=== PATIENT | female | born 1965 | race Hispanic/Latino ===

== ENCOUNTER 2020-01-22 17:43 | Emergency (ER) | payer SELFPAY ==
[~2020-01-22] VITALS: Ht 157.5 cm; Wt 62.1 kg
[2020-01-22] MEDS ORDERED: KETOROLAC TROMETHAMINE 30 MG/ML VIAL IV STA (18:53)
--- NOTE | 2020-01-22 19:07 | NUR ---
Report to ARNOLD Del Cid
[2020-01-22] MEDS ORDERED: INSULIN REGULAR, HUMAN 100 UNIT/1 ML 3ML VIAL IV ONE (20:00)
[2020-01-22] MEDS ORDERED: INSULIN REGULAR, HUMAN 100 UNIT/1 ML 3ML VIAL ONE (20:15)
--- NOTE | 2020-01-22 20:16 | Diagnostic Imaging Report ---
EXAMINATION: CT of the abdomen and pelvis without contrast. TECHNIQUE: Spiral CT images of the abdomen and pelvis were performed from the lung bases to the lesser trochanters. No intravenous contrast was given per renal stone protocol. Coronal and sagittal reformatted images were obtained. COMPARISON: None. CLINICAL HISTORY:Abdominal pain, left flank pain since 3 hours ago DISCUSSION: ABSENCE OF INTRAVENOUS CONTRAST DECREASES SENSITIVITY FOR DETECTION OF FOCAL LESIONS AND VASCULAR PATHOLOGY. ABDOMEN/PELVIS: LOWER THORAX: Lung bases are clear. Atherosclerotic calcification of the coronary arteries. HEPATOBILIARY: No focal hepatic lesions. No intra or extrahepatic biliary ductal dilation. GALLBLADDER: Cholecystectomy clips. SPLEEN: No splenomegaly. PANCREAS: No focal masses or ductal dilatation. ADRENALS: No adrenal nodules. KIDNEYS/URETERS: No renal or ureteral calculi, hydronephrosis or obstruction. No contour abnormalities or significant perinephric stranding. Extensive renal vascular calcifications. PELVIC ORGANS/BLADDER: Bladder is unremarkable, without focal lesions, wall thickening or stones. Uterus is absent. Multiple pelvic phleboliths. No adnexal masses. PERITONEUM/RETROPERITONEUM: No free air or fluid. LYMPH NODES: No intra-abdominal,retroperitoneal, pelvic or inguinal lymphadenopathy. VESSELS: Marked atherosclerotic calcification of the aortic branches, particularly celiac trunk and splenic artery, SMA, ANAM and iliac vessels, as well as bilateral renal arteries. GI TRACT: No bowel dilation or evidence of obstruction. Appendix is well identified and normal in caliber. No pericolonic inflammatory changes. No wall thickening. Intraluminal 1.5 cm fat density structures in the distal small bowel (series 2, images 47 and 46), may represent small lipomas or pill material. 9 mm oval shaped intraluminal hyperdensities in the distal small bowel (series 2, image 44) likely represent undigested pill material. BONES AND SOFT TISSUES: No aggressive lytic or suspicious focal sclerotic lesions soft tissues are grossly unremarkable.. IMPRESSION: 1. No renal, ureteral or bladder calculi, hydronephrosis or obstruction. No acute abdominopelvic abnormalities in this noncontrast exam. 2.. Marked atherosclerotic calcification of the aortic branches, particularly the celiac trunk, splenic artery, SMA, ANAM and iliac vessels, greater than expected for the patient's age. Signed by: Dr. Steven Meyer M.D. on 01/22/2020 8:12 PM
[2020-01-22] MEDS ORDERED: KETOROLAC TROMETHAMINE 30 MG/ML VIAL ONE (20:17)
--- NOTE | 2020-01-22 20:30 | Emergency Department Note ---
History of Present Illnes History of Present Illness Chief Complaint: Back Pain History of Present Illness This is a 54 year old female Chief Complaint Comment Reports that she is having left flank pain for the last 3 hours, denies any urinary symptoms . Historian: Patient Arrival Mode: Car Onset (how long ago): day(s) (2) Location: left flank Quality: sharp Radiation: Denies non-radiation, Denies back, Denies neck, Denies extremity, Denies abdomen, Denies periumbilical, Denies flank, Denies proximal, Denies distal, Denies other Severity: moderate Onset quality: gradual Duration (how long): day(s) (2) Timing of current episode: intermittent Progression: waxing and waning Chronicity: new Context: Denies recent illness, Denies recent surgery, Denies recent immobilization, Denies recent travel, Denies trauma/injury, Denies new medications, Denies hx of DVT/PE, Denies non-compliance w/ medications, Denies other Relieving factors: none Exacerbating factors: none Associated symptoms: Reports denies other symptoms, Reports other Treatments prior to arrival: none Past Medical/Family History Physician Review I have reviewed the patient's past medical and family history. Any updates have been documented here. Past Medical History Recent Fever: No Clinical Suspicion of Infectio: No New/Unexplained Change in Ment: No Past Medical History: Hypertension, Diabetes, TIA, UTI's Other Medical History: bronchitis Past Surgical History: Cholecysctectomy, Hysterectomy Other Surgery: hand surgery Social History Smoking Cessation: Never Smoker Counseling Performed: No Alcohol Use: None Any Illegal Drug Use: No TB Exposure/Symptoms: No Physically hurt or threatened: No Family History Family history of heart diseas: Yes Other Last Tetanus: U Any Pre-Existing Lines (PICC,: No Is patient up to date on immun: Yes Last Flu: none Last Pneumovax: none Review of Systems Review of Systems Constitutional: Reports no symptoms EENTM: Reports no symptoms Cardiovascular: Reports no symptoms Respiratory: Reports no symptoms Gastrointestinal: Reports as per HPI Genitourinary: Reports as per HPI Musculoskeletal: Reports no symptoms Integumentary: Reports no symptoms Neurological: Reports no symptoms Psychological: Reports no symptoms Endocrine: Reports no symptoms Hematological/Lymphatic: Reports no symptoms Physical Exam Related Data Allergies: Coded Allergies: methylphenidate (Verified Allergy, Severe, hallucinations, 01/22/20) metoclopramide (Verified Allergy, Severe, auditory hallucinations, 01/22/20) Penicillins (Verified Allergy, Intermediate, hives/rash, 01/22/20) Triage Vital Signs Vital Signs Date Time Temp Pulse Resp B/P (MAP) Pulse Ox O2 Delivery O2 Flow Rate FiO2 01/22/20 18:35 97.8 84 15 205/95 98 Vital signs reviewed: Yes Physical Exam CONSTITUTIONAL Constitutional: Present well-developed, Present well-nourished HENT HENT: Present normocephalic, Present atraumatic, Present oropharynx clear/moist, Present nose normal HENT L/R: Present left ext ear normal, Present right ext ear normal EYES Eyes: Reports PERRL, Reports conjunctivae normal NECK Neck: Present ROM normal PULMONARY Pulmonary: Present effort normal, Present breath sounds normal CARDIOVASCULAR Cardiovascular: Present regular rhythm, Present heart sounds normal, Present capillary refill normal, Present normal rate GASTROINTESTINAL Abdominal: Present soft, Present nontender, Present bowel sounds normal, P resent other (left flank tenderness) GENITOURINARY Genitourinary: Present exam deferred SKIN Skin: Present warm, Present dry MUSCULOSKELETAL Musculoskeletal: Present ROM normal NEUROLOGICAL Neurological: Present alert, Present oriented x 3, Present no gross motor or sensory deficits PSYCHOLOGICAL Psychological: Present mood/affect normal, Present judgement normal Results Laboratory Lab results reviewed: Yes Imaging Imaging results reviewed: Yes Assessment & Plan Medical Decision Making MDM kidney stone uti Reassessment Reassessment time: 20:27 Reassessment better Assessment & Plan Final Impression: (1) Acute left flank pain (2) UTI (urinary tract infection) (3) Hyperglycemia (4) Uncontrolled hypertension Depart Disposition: HOME, SELF-CARE Last Vital Signs Date Time Temp Pulse Resp B/P (MAP) Pulse Ox O2 Delivery O2 Flow Rate FiO2 01/22/20 18:35 97.8 84 15 205/95 98 Medications in the ED Ketorolac Tromethamine 15 mg ONCE STAT IV Last administered on 01/22/20at 20:14; Admin Dose 15 MG; Start 01/22/20 at 18:53; Stop 01/22/20 at 18:58; Status DC Insulin Human Regular 5 unit ONCE ONCE IV Last administered on 01/22/20at 20:14; Admin Dose 5 UNIT; Start 01/22/20 at 20:00; Stop 01/22/20 at 20:01; Status UNV Ketorolac Tromethamine 30 mg STK-MED ONCE .ROUTE ; Start 01/22/20 at 20:17; Stop 01/22/20 at 20:14; Status DC IRAM RUST MD Jan 22, 2020 20:30
== END 2020-01-22 20:32 | disposition home or self-care (01) ==
LOC: EDSEX 17:43 → FSED 17:43
DX: M54.5 Low back pain (principal); N39.0 Urinary tract infection, site not specified; E11.65 Type 2 diabetes mellitus with hyperglycemia; I10 Essential (primary) hypertension; Z86.73 Personal history of transient ischemic attack (TIA), and cerebral infarction without residual deficits
CPT/HCPCS: 74176; 80053; 81003; 85025; 99284; J1817; J1885

== ENCOUNTER 2020-11-19 09:49 | Emergency (ER) | payer MEDICARE, OTHER ==
[~2020-11-19] VITALS: Ht 157.5 cm; Wt 65.1 kg
[2020-11-19] MEDS ORDERED: KETOROLAC TROMETHAMINE 30 MG/ML VIAL IV STA (10:15)
[2020-11-19 12:27] VITALS: BP 132/77
== END 2020-11-19 12:27 | disposition home or self-care (01) ==
LOC: FSED 10:33
DX: M54.5 Low back pain (principal); N39.0 Urinary tract infection, site not specified; I10 Essential (primary) hypertension; E11.9 Type 2 diabetes mellitus without complications; Z86.73 Personal history of transient ischemic attack (TIA), and cerebral infarction without residual deficits
CPT/HCPCS: 74176; 80053; 81003; 85025; 96374; 99284; J1885

== ENCOUNTER 2021-03-29 10:09 | Emergency (ER) | payer OTHER ==
[~2021-03-29] VITALS: Ht 157.5 cm; Wt 64.9 kg
[~2021-03-29 10:09] MED LIST: AMLODIPINE BESYL5 MG PO; CIPRO500 MG PO; HUMULIN-R100 UNITS/ SQ; LISINOPRIL2.5 MG PO; METFORMIN HCL500 M2 PO; TYLENOL # 31 EA PO
[2021-03-29] MEDS ORDERED: SODIUM CHLORIDE 0.9% 50ML 50 ML ONE (11:22)
[2021-03-29] MEDS ORDERED: IOPAMIDOL 370 MG/ML 200 ML INFUS..BTL INJ ONE (11:22)
[2021-03-29] MEDS ORDERED: ACETAMINOPHEN-1 EAC3 PO (13:03)
[2021-03-29] MEDS ORDERED: MACROBID 100 M100 MG PO (13:03)
[2021-03-29 13:14] VITALS: BP 118/60
== END 2021-03-29 13:15 | disposition home or self-care (01) ==
LOC: FSED 11:00
DX: N39.0 Urinary tract infection, site not specified (principal); I10 Essential (primary) hypertension; E11.9 Type 2 diabetes mellitus without complications; Z79.4 Long term (current) use of insulin; Z86.73 Personal history of transient ischemic attack (TIA), and cerebral infarction without residual deficits; Z79.899 Other long term (current) drug therapy; Z90.710 Acquired absence of both cervix and uterus; Z90.49 Acquired absence of other specified parts of digestive tract
CPT/HCPCS: 74177; 80048; 80076; 81003; 85025; 99284; Q9967

== ENCOUNTER 2021-04-02 09:18 | Emergency (ER) | payer OTHER ==
[~2021-04-02] VITALS: Ht 157.5 cm; Wt 64.7 kg
[~2021-04-02 09:18] MED LIST changes: +ACETAMINOPHEN-1 EAC3 PO; +MACROBID 100 M100 MG PO
[2021-04-02] MEDS ORDERED: KETOROLAC TROMETHAMINE 60 MG/2 ML VIAL IM ONE (09:45)
[2021-04-02] MEDS ORDERED: KETOROLAC TROMETHAMINE 60 MG/2 ML VIAL ONE (09:57)
[2021-04-02] MEDS ORDERED: ACETAMINOPHEN-1 EAC3 PO (10:22)
== END 2021-04-02 10:27 | disposition home or self-care (01) ==
LOC: FSED 09:30
DX: R10.12 Left upper quadrant pain (principal); S33.5XXA Sprain of ligaments of lumbar spine, initial encounter; I10 Essential (primary) hypertension; E11.9 Type 2 diabetes mellitus without complications; Z86.73 Personal history of transient ischemic attack (TIA), and cerebral infarction without residual deficits
CPT/HCPCS: 74176; 81003; 96372; 99283; J1885

== ENCOUNTER 2021-07-05 09:24 | Emergency (ER) | payer OTHER ==
[~2021-07-05] VITALS: Ht 157.5 cm; Wt 65.0 kg
[2021-07-05] MEDS ORDERED: FLOVENT HFA12 G1 INH (11:47)
[2021-07-05] MEDS ORDERED: ULTRAM50 MG PO (11:49)
== END 2021-07-05 12:05 | disposition home or self-care (01) ==
LOC: FSED 09:48
DX: R09.1 Pleurisy (principal); R05.9 Cough, unspecified; J98.01 Acute bronchospasm; E11.9 Type 2 diabetes mellitus without complications; I10 Essential (primary) hypertension; F41.9 Anxiety disorder, unspecified; K21.9 Gastro-esophageal reflux disease without esophagitis; Z86.73 Personal history of transient ischemic attack (TIA), and cerebral infarction without residual deficits; Z87.19 Personal history of other diseases of the digestive system
CPT/HCPCS: 71046; 99283

== ENCOUNTER 2021-10-14 13:47 | Emergency (ER) | payer OTHER ==
[~2021-10-14] VITALS: Ht 157.5 cm; Wt 67.2 kg
[~2021-10-14 13:47] MED LIST changes: +FLOVENT HFA12 G1 INH; +ULTRAM50 MG PO
[2021-10-14] MEDS ORDERED: KETOROLAC TROMETHAMINE 30 MG/ML VIAL IV STA (14:27)
[2021-10-14] MEDS ORDERED: KETOROLAC TROMETHAMINE 30 MG/ML VIAL ONE (14:50)
[2021-10-14] MEDS ORDERED: FLOMAX0.4 MG PO (17:19)
[2021-10-14] MEDS ORDERED: KETOROLAC TROME10 MG PO (17:19)
== END 2021-10-14 17:26 | disposition home or self-care (01) ==
LOC: FSED 13:47
DX: R10.30 Lower abdominal pain, unspecified (principal); N20.0 Calculus of kidney; E11.65 Type 2 diabetes mellitus with hyperglycemia; I10 Essential (primary) hypertension; K21.9 Gastro-esophageal reflux disease without esophagitis; F41.9 Anxiety disorder, unspecified; Z86.73 Personal history of transient ischemic attack (TIA), and cerebral infarction without residual deficits
CPT/HCPCS: 74176; 80048; 80076; 81003; 85025; 96374; 99284; J1885

== ENCOUNTER 2022-12-27 08:37 | Emergency (ER) | payer OTHER ==
[~2022-12-27] VITALS: Ht 157.5 cm; Wt 62.7 kg
[~2022-12-27 08:37] MED LIST changes: +ASPIRIN EC81 MG PO; +ATORVASTATIN CA20 MG PO; +CITALOPRAM HBR20 MG PO; +CYCLOBENZAPRINE5 MG PO; +FLOMAX0.4 MG PO; +FLUOXETINE HCL20 MG PO; +ISOSORBIDE DINI10 MG; +KETOROLAC TROME10 MG PO; +MIRTAZAPINE15 MG PO; +TRADJENTA5 MG; +XANAX0.25 MG PO; +XANAX0.5 MG PO
[2022-12-27] MEDS ORDERED: KETOROLAC TROMETHAMINE 30 MG/ML VIAL IV STA (08:58)
[2022-12-27] MEDS ORDERED: ONDANSETRON HCL INJ 2MG/ML 2ML 2 MG/ML VIAL IV STA (08:58)
[2022-12-27] MEDS ORDERED: DEXAMETHASONE SOD PHOS INJ 4 MG/ML SDV IV ONE (09:00)
[2022-12-27] MEDS ORDERED: SODIUM CHLORIDE 0.9% 1000ML 1,000 ML IV ONE (09:00)
[2022-12-27] MEDS ORDERED: DEXAMETHASONE SOD PHOS INJ 4 MG/ML SDV ONE (09:24)
[2022-12-27] MEDS ORDERED: ONDANSETRON HCL INJ 2MG/ML 2ML 2 MG/ML VIAL ONE (09:24)
[2022-12-27] MEDS ORDERED: SODIUM CHLORIDE 0.9% 1000ML 1,000 ML ONE (09:25)
[2022-12-27] MEDS ORDERED: KETOROLAC TROMETHAMINE 30 MG/ML VIAL ONE (09:25)
[2022-12-27] MEDS ORDERED: MECLIZINE HCL 12.5 MG TAB ONE (09:29)
[2022-12-27] MEDS ORDERED: MECLIZINE HCL 12.5 MG TAB PO ONE (09:30)
[2022-12-27 09:56] VITALS: O2SAT 99
[2022-12-27] MEDS ORDERED: FLONASE ALLERG9.9 ML INH (10:56)
[2022-12-27] MEDS ORDERED: CLARITIN10 MG PO (10:56)
[2022-12-27] MEDS ORDERED: MECLIZINE HCL12.5 MG PO (10:58)
== END 2022-12-27 11:04 | disposition home or self-care (01) ==
LOC: FSED 08:50
DX: R42 Dizziness and giddiness (principal); R51.9 Headache, unspecified; R11.2 Nausea with vomiting, unspecified; E11.65 Type 2 diabetes mellitus with hyperglycemia; I10 Essential (primary) hypertension; K21.9 Gastro-esophageal reflux disease without esophagitis; F41.9 Anxiety disorder, unspecified; R94.31 Abnormal electrocardiogram [ECG] [EKG]; Z87.442 Personal history of urinary calculi; Z86.73 Personal history of transient ischemic attack (TIA), and cerebral infarction without residual deficits
CPT/HCPCS: 70450; 80053; 81003; 82553; 84484; 85025; 93005; 96374; 96375; 99284; J1100; J1885; J2405; J7030; J8597

== ENCOUNTER 2024-01-27 09:06 | Emergency (ER) | payer OTHER ==
[~2024-01-27] VITALS: Ht 157.5 cm; Wt 65.8 kg
[~2024-01-27 09:06] MED LIST changes: +CEFUROXIME500 MG PO; +CLARITIN10 MG PO; +COLACE100 MG/10 PO; +FLONASE ALLERG9.9 ML INH; +MECLIZINE HCL12.5 MG PO; +METHOCARBAMOL500 MG PO; +NAPROSYN500 MG PO
[2024-01-27 09:11] VITALS: TEMP 97.8
[2024-01-27] MEDS: SODIUM CHLORIDE 0.9% 1000ML 1,000 ML IV STA (09:58)
[2024-01-27] MEDS: DICYCLOMINE HCL 20 MG/2 ML VIAL IM ONE (09:58)
[2024-01-27] MEDS ORDERED: MOTOFEN TABLET1 EACH PO (10:56)
[2024-01-27] MEDS ORDERED: DICYCLOMINE HCL10 MG PO (10:58)
[2024-01-27] MEDS ORDERED: ALIGN4 MG PO (11:04)
[2024-01-27 11:05] VITALS: PULSE 75; RESP 18; O2SAT 99
== END 2024-01-27 11:15 | disposition home or self-care (01) ==
LOC: FSED 09:09
DX: R19.7 Diarrhea, unspecified (principal); E86.0 Dehydration; E11.65 Type 2 diabetes mellitus with hyperglycemia; Z79.4 Long term (current) use of insulin; I10 Essential (primary) hypertension; E78.5 Hyperlipidemia, unspecified; F41.9 Anxiety disorder, unspecified; Z86.73 Personal history of transient ischemic attack (TIA), and cerebral infarction without residual deficits; Z87.440 Personal history of urinary (tract) infections; Z87.442 Personal history of urinary calculi; K21.9 Gastro-esophageal reflux disease without esophagitis; G89.29 Other chronic pain; M54.9 Dorsalgia, unspecified
CPT/HCPCS: 80048; 80076; 81003; 85025; 99283; J7030

== ENCOUNTER 2024-02-11 10:45 | Emergency (ER) | payer OTHER ==
[~2024-02-11] VITALS: Ht 157.5 cm; Wt 65.8 kg
[~2024-02-11 10:45] MED LIST changes: +ALIGN4 MG PO; +DICYCLOMINE HCL10 MG PO; +MOTOFEN TABLET1 EACH PO
[2024-02-11 10:58] VITALS: PULSE 86; RESP 15; TEMP 97.1
[2024-02-11] MEDS ORDERED: CLINDAMYCIN HC150 MG PO (12:00)
[2024-02-11] MEDS ORDERED: LEVOFLOXACIN500 MG PO (12:00)
[2024-02-11 12:15] VITALS: BP 173/77; PULSE 76; RESP 16; O2SAT 100
== END 2024-02-11 12:48 | disposition home or self-care (01) ==
LOC: ER 10:52
DX: E11.621 Type 2 diabetes mellitus with foot ulcer (principal); L03.115 Cellulitis of right lower limb; I10 Essential (primary) hypertension; E78.5 Hyperlipidemia, unspecified; F41.9 Anxiety disorder, unspecified; K21.9 Gastro-esophageal reflux disease without esophagitis; M81.0 Age-related osteoporosis without current pathological fracture; R01.1 Cardiac murmur, unspecified; M54.9 Dorsalgia, unspecified; G89.29 Other chronic pain; Z86.73 Personal history of transient ischemic attack (TIA), and cerebral infarction without residual deficits
CPT/HCPCS: 99283